=== PATIENT | male | born 1945 | race Caucasian/White ===

== ENCOUNTER 2025-05-15 07:49 | Inpatient (IN) | payer OTHER ==
[2025-05-15 09:29] LABS: MCHC 32.0 g/dl (32.3-36.5); MEAN CELL VOLUME 88.7 fl (79.0-92.2); MEAN PLT VOLUME 8.9 fl (9.4-12.4); RDW 14.5 % (12.6-16.6)
[2025-05-15 10:49] LABS: GLUCOSE,RANDOM 108.0 mg/dL (74-106); TOT PROT 6.0 g/dl (6.4-8.2)
[2025-05-15 10:50] LABS: CO2 26.0 mmol/L (21-32)
[2025-05-15 10:55] LABS: CREATININE 2.93 mg/dL (0.55-1.3); SGOT/AST 40.0 U/L (5-34); SGPT/ALT 27.0 U/L (0-55)
[2025-05-15 10:56] LABS: ALK PHOS 245.0 U/L (40-150)
[2025-05-15] MEDS: SODIUM CHLORIDE 1,000 ML IV STA (12:19)
[2025-05-15 12:35] LABS: EPI CELLS 1 /uL (0-25.1); HYALINE CASTS 0 /uL (0-3.1); URINE APPEARANCE CLOUDY; URINE BACTERIA >9,000 /uL (0-1359); URINE BILIRUBIN NEGATIVE (NEGATIVE); URINE COLOR YELLOW; URINE GLUCOSE (UA) NEGATIVE (NEGATIVE); URINE KETONE NEGATIVE (NEGATIVE); URINE LEUK ESTERASE 2+ (NEGATIVE); URINE NITRITE NEGATIVE (NEGATIVE); URINE PROTEIN TRACE (NEGATIVE); URINE RBC 39 /uL (0-23.9); URINE UROBILINOGEN 1.0 mg/dL (0.2-1.0); URINE WBC 268 /uL (0-25.8)
[2025-05-15] MEDS ORDERED: ACETAMINOPHEN 325 MG TABLET (FP) PO PRN (12:59)
[2025-05-15] MEDS ORDERED: CEFTRIAXONE 1 GM/50 ML BAG ONE (13:22)
[2025-05-15] MEDS: CEFTRIAXONE 1,000 MG in DEXTROSE 5%-WATER - 50 ML IVPB ONE (13:23)
[2025-05-15 14:00] LABS: HIV INTERPRETATION NEGATIVE (NEGATIVE)
[2025-05-15] MEDS ORDERED: SODIUM CHLORIDE 1,000 ML IV SCH (14:00)
[2025-05-15 14:04] LABS: HCV DIAGNOSTIC IN-HOUSE W/RFLX NON-REACTIVE (NONREACTIVE)
[2025-05-15] MEDS: SODIUM CHLORIDE 1,000 ML IV SCH ×2 (15:00→23:47)
[2025-05-15] MEDS: SERTRALINE HCL 50 MG TABLET (FP) PO SCH (21:30)
[2025-05-16] MEDS: CALCITONIN - SALMON SYNTHETIC 400 UNIT/2 ML VIAL SQ SCH (01:20)
[2025-05-16 08:23] LABS: MCHC 31.7 g/dl (32.3-36.5); MEAN CELL VOLUME 88.8 fl (79.0-92.2); MEAN PLT VOLUME 8.9 fl (9.4-12.4); RDW 14.2 % (12.6-16.6)
[2025-05-16 08:55] LABS: GLUCOSE,RANDOM 130.0 mg/dL (74-106)
[2025-05-16 08:56] LABS: CO2 25.0 mmol/L (21-32); TOT PROT 5.6 g/dl (6.4-8.2)
[2025-05-16 09:01] LABS: CREATININE 2.56 mg/dL (0.55-1.3); SGOT/AST 39.0 U/L (5-34); SGPT/ALT 27.0 U/L (0-55)
[2025-05-16 09:03] LABS: ALK PHOS 249.0 U/L (40-150)
[2025-05-16] MEDS: TAMSULOSIN HCL 0.4 MG CAP PO SCH (09:05)
[2025-05-16] MEDS: DONEPEZIL HCL 10 MG TABLET (FP) PO SCH (09:14)
[2025-05-16] MEDS: MEMANTINE HCL 10 MG TABLET (FP) PO SCH (09:14)
[2025-05-16] MEDS: amLODIPine BESYLATE 5 MG TABLET (FP) PO SCH (09:14)
[2025-05-16] MEDS: MAGNESIUM OXIDE 400 MG TABLET (FP) PO ONE (11:01)
[2025-05-16] MEDS: CEFTRIAXONE 1 GM in DEXTROSE 5%-WATER - 50 ML IVPB SCH (16:22)
[2025-05-16] MEDS: SODIUM CHLORIDE 1,000 ML IV SCH (16:24)
[2025-05-16] MEDS: ZOLEDRONIC ACID 4 MG in SODIUM CHLORIDE 100 ML IVPB ONE (17:40)
[2025-05-16] MEDS: ONDANSETRON 4 MG/2 ML VIAL IVPUSH PRN (18:35)
[2025-05-16] MEDS: POLYETHYLENE GLYCOL (HEALTHYLAX) 3350 17 GM PACKET PO SCH (19:35)
[2025-05-16] MEDS: HEPARIN NA (PORCINE) 5,000 UNITS/ML 1ML VIAL SQ SCH (21:39)
[2025-05-17 08:37] LABS: MCHC 32.0 g/dl (32.3-36.5); MEAN CELL VOLUME 88.1 fl (79.0-92.2); MEAN PLT VOLUME 9.2 fl (9.4-12.4); RDW 14.4 % (12.6-16.6)
[2025-05-17 09:08] LABS: GLUCOSE,RANDOM 95.0 mg/dL (74-106)
[2025-05-17 09:09] LABS: CO2 24.0 mmol/L (21-32)
[2025-05-17 09:14] LABS: CREATININE 2.14 mg/dL (0.55-1.3)
[2025-05-17] MEDS: MAGNESIUM 2GM/50ML STERILE WATER IVPB IVPB ONE (11:46)
[2025-05-17] MEDS: NAPH,MB-DB/K PH,MBDB POWDER PACKET PO ONE (15:04)
[2025-05-17] MEDS: SODIUM CHLORIDE 1,000 ML IV SCH (15:04)
[2025-05-17] MEDS: MAGNESIUM OXIDE 400 MG TABLET (FP) PO ONE (15:04)
[2025-05-18 04:19] VITALS: RESP 18
[2025-05-18 09:14] VITALS: BMI 26.2
[2025-05-18 10:42] VITALS: BP 104/65; PULSE 69; TEMP 98.1
== END 2025-05-18 13:45 | disposition home or self-care (01) | DRG 683 ==
LOC: JER 07:49 → JERBED 12:11 → J6S 14:21
PROVIDERS: ADMIT Student in an Organized Health Care Education/Training Program; ATTEND Internal Medicine
DX: N17.9 Acute kidney failure, unspecified (principal); C85.90 Non-Hodgkin lymphoma, unspecified, unspecified site; N39.0 Urinary tract infection, site not specified; E83.52 Hypercalcemia; G20.A1 Parkinson's disease without dyskinesia, without mention of fluctuations; F32.9 Major depressive disorder, single episode, unspecified; I12.9 Hypertensive chronic kidney disease with stage 1 through stage 4 chronic kidney disease, or unspecified chronic kidney disease; F02.80 Dementia in other diseases classified elsewhere, unspecified severity, without behavioral disturbance, psychotic disturbance, mood disturbance, and anxiety; G30.9 Alzheimer's disease, unspecified; R11.10 Vomiting, unspecified; E86.0 Dehydration; N18.9 Chronic kidney disease, unspecified; N40.0 Benign prostatic hyperplasia without lower urinary tract symptoms
CPT/HCPCS: 36415; 71045-TC-FY; 80048; 80053; 81003; 82306; 83735; 83970; 84100; 84484; 85025; 86803; 87086; 87389; 93005; 93010; 97116-GP; 97162-GP; 99285-25; J3489